=== PATIENT | female | born 1945 | race Caucasian/White ===

== ENCOUNTER 2017-09-22 09:53 | Emergency (ER) | payer OTHER ==
[2017-09-22 10:06] VITALS: BP 147/74; PULSE 84; TEMP 98.5; BMI 24.1
--- NOTE | 2017-09-22 11:22 | PDOC ---
History of Present Illness - General Chief Complaint: Injury Stated Complaint: FALL/INJURY Time Seen by Provider: 09/22/17 11:07 History Source: Patient Exam Limitations: No Limitations - History of Present Illness Initial Comments: CHIEF COMPLAINT: 72 y/o afebrile female with PMH HTN and IDDM c/o right hand and knee pain s/p trip and fall at work. HISTORY OF PRESENT ILLNESS: The patient tripped over a hose at work this morning and landed on her right hand and knee and scraped her face. She denies LOC, neck pain, changes in vision/hearing, n/v/d, CP, SOB, abd pain, back pain, numbness/tingling in extremities. She was able to walk after falling. Vital signs on arrival are within normal limits. REVIEW OF SYSTEMS: GENERAL/CONSTITUTIONAL: No fever/chills. No weakness. No weight change. HEAD, EYES, EARS, NOSE AND THROAT: No change in vision. No ear pain or discharge. No sore throat. CARDIOVASCULAR: No chest pain or shortness of breath. RESPIRATORY: No cough, wheezing, or hemoptysis. GASTROINTESTINAL: No abd pain, nausea, vomiting, diarrhea. GENITOURINARY: No dysuria, frequency, or change in urination. MUSCULOSKELETAL: +right hand and knee pain. +scrape to face. No neck or back pain. SKIN: No rash or easy bruising. NEUROLOGIC: No headache, vertigo, loss of consciousness, or loss of sensation. PHYSICAL EXAM: GENERAL: The patient is awake, alert, and fully oriented, in no acute distress. She is very well appearing, in NAD or obvious discomfort. She is ambulatory. HEAD: Normal with no signs of trauma. No hematomas FACE: small abrasion to left infraorbital region without active bleeding. No crepitus to orbits. ENT: Pupils equal, round and reactive to light, extraocular movements intact, sclera anicteric, conjunctiva clear. No pain with EOMs. No ptosis. No proptosis. Neck supple. LUNGS: Clear to auscultation bilaterally. Normal excursion. No respiratory distress or use of accessory muscles. CV: RRR, S1/S2, no MRG. Cap refill < 2 sec. ABDOMEN: Soft, non-distended, non-tender even to deep palpation, no hepatomegaly or splenomegaly, no masses. EXTREMITIES: Normal range of motion, no edema. Pain with palpation of right 5th MCP joint without swelling or erythema. No crepitus. Full ROM of right hand/wrist. Pain with palpation of right patella without swelling, erythema or abrasions. Full ROM of right knee. No joint line tenderness of right knee. NEUROLOGICAL: Normal speech, normal gait. CN II-XII grossly intact. SKIN: Warm, dry, normal turgor, no rashes or lesions noted. Past History - Past Medical History Allergies/Adverse Reactions: Allergies Allergy/AdvReac Type Severity Reaction Status Date / Time aspirin Allergy Verified 09/22/17 10:06 codeine Allergy Verified 09/22/17 10:06 COPD: No Diabetes: Yes HTN: Yes Other medical history: Vit12 deficiency needs injections - Surgical History Abdominal Surgery: Yes Appendectomy: Yes Cholecystectomy: Yes - Suicide/Smoking/Psychosocial Hx Smoking History: Never smoked Information on smoking cessation initiated: No Hx Alcohol Use: No Drug/Substance Use Hx: No Substance Use Type: None *Physical Exam - Vital Signs Last Vital Signs Temp Pulse Resp BP Pulse Ox 98.5 F 84 19 147/74 97 09/22/17 10:03 09/22/17 10:03 09/22/17 10:03 09/22/17 10:03 09/22/17 10:03 Medical Decision Making - Medical Decision Making A/P: 72 y/o female with right hand and knee pain s/p slip and fall. The patient is unsure of what she can have for pain medication so she would prefer to take her own pain medication that she has with her in her bag. Plan is as follows: 1. xray right knee 2. xray right hand/wrist xray right knee IMPRESSION: No acute findings xray right hand/wrist IMPRESSION: No gross bone abnormalities Gave the patient her results. Will provide with RICE instructions and work note. Suggested she f/u with her doctor and return to the ER with any worsening or concerning symptoms. The patient verbalizes understanding of all instructions, has no further questions and is awaiting discharge. *DC/Admit/Observation/Transfer Diagnosis at time of Disposition: Abrasion Fall Qualifiers: Encounter type: initial encounter Qualified Code(s): W19.XXXA - Unspecified fall, initial encounter Strain of wrist, right Qualifiers: Encounter type: initial encounter Qualified Code(s): S66.911A - Strain of unspecified muscle, fascia and tendon at wrist and hand level, right hand, initial encounter Right knee pain Qualifiers: Chronicity: acute Qualified Code(s): M25.561 - Pain in right knee - Discharge Dispostion Disposition: HOME Condition at time of disposition: Good - Referrals - Patient Instructions Printed Discharge Instructions: How To Perform RICE (Rest, Ice, Compress, Elevate), DI for Abrasion, DI for Knee Pain, DI for Wrist Sprain Additional Instructions: Discharge Instructions: -Follow RICE instructions -Your xrays were normal. -Take your prescribed pain medication -Follow up with your doctor within 1 week -Return to the ER with any worsening or concerning symptoms - Post Discharge Activity Forms/Work/School Notes: Back to Work
== END 2017-09-22 13:00 | disposition home or self-care (01) ==
LOC: JERFT 09:53
DX: S66.811A Strain of other specified muscles, fascia and tendons at wrist and hand level, right hand, initial encounter (principal); M25.561 Pain in right knee; W18.09XA Striking against other object with subsequent fall, initial encounter; Y93.89 Activity, other specified; Y92.69 Other specified industrial and construction area as the place of occurrence of the external cause; Y99.0 Civilian activity done for income or pay
CPT/HCPCS: 73110-TC-RT; 73130-TC-RT; 73560-TC-RT; 99281-25